=== PATIENT | female | born 1970 | race Caucasian/White ===

== ENCOUNTER 2018-07-25 13:18 | Emergency (ER) | payer OTHER ==
[~2018-07-25] VITALS: Ht 152.4 cm; Wt 55.8 kg
[2018-07-25] MEDS ORDERED: BISOPROLOL FUMAR5 MG PO (13:28)
== END 2018-07-25 19:36 | disposition home or self-care (01) ==
LOC: ER 13:18
DX: K21.9 Gastro-esophageal reflux disease without esophagitis (principal)